=== PATIENT | male | born 1970 | race Caucasian/White ===

== ENCOUNTER → 2020-10-18 | Outpatient (CLI) | payer OTHER ==
[2020-10-18 15:37] LABS: ALBUMIN 4.5 g/dL (3.5-5.0)
[2020-10-18 15:38] LABS: CALCIUM 9.1 mg/dL (8.3-10.5)
[2020-10-18 15:40] LABS: TOTAL PROTEIN 6.7 g/dL (6.4-8.3)
[2020-10-18 15:42] LABS: TOTAL BILIRUBIN 0.9 mg/dL (0.2-1.2)
== END ==
LOC: LAB 15:17
PROVIDERS: Family Medicine
DX: Z13.6 Encounter for screening for cardiovascular disorders (principal); Z12.5 Encounter for screening for malignant neoplasm of prostate; Z13.1 Encounter for screening for diabetes mellitus

== ENCOUNTER → 2021-11-29 | Outpatient (CLI) | payer BC ==
[2021-11-29 10:11] LABS: ALBUMIN 4.5 g/dL (3.5-5.0)
[2021-11-29 10:12] LABS: POTASSIUM 4.4 mmol/L (3.5-5.1)
[2021-11-29 10:13] LABS: CALCIUM 9.4 mg/dL (8.3-10.5)
[2021-11-29 10:16] LABS: TOTAL BILIRUBIN 0.9 mg/dL (0.2-1.2)
== END ==
LOC: LAB 09:16
PROVIDERS: Family Medicine
DX: Z00.00 Encounter for general adult medical examination without abnormal findings (principal); I10 Essential (primary) hypertension; B36.0 Pityriasis versicolor; K21.9 Gastro-esophageal reflux disease without esophagitis; L60.3 Nail dystrophy; R63.5 Abnormal weight gain

== ENCOUNTER → 2022-03-14 | Outpatient (CLI) | payer BC, OTHER ==
[2022-03-14 09:06] LABS: ALBUMIN 4.4 g/dL (3.5-5.0)
[2022-03-14 09:09] LABS: TOTAL PROTEIN 7.2 g/dL (6.4-8.3)
[2022-03-14 09:11] LABS: TOTAL BILIRUBIN 0.8 mg/dL (0.2-1.2)
[2022-03-14 09:14] LABS: DIRECT BILIRUBIN 0.3 mg/dL (0.0-0.5)
== END ==
LOC: LAB 08:37
PROVIDERS: Family Medicine
DX: B35.1 Tinea unguium (principal); K21.9 Gastro-esophageal reflux disease without esophagitis